=== PATIENT | female | born 1955 | race Two or more races ===

== ENCOUNTER 2019-07-23 09:30 | Day surgery (SDC) | payer OTHER | END 2019-07-23 17:00 | disposition home or self-care (01) | LOC: AMB-ENDOS 09:30 | DX: D12.0 Benign neoplasm of cecum (principal); K57.32 Diverticulitis of large intestine without perforation or abscess without bleeding; K57.30 Diverticulosis of large intestine without perforation or abscess without bleeding; K64.1 Second degree hemorrhoids ==

== ENCOUNTER 2020-01-15 17:33 | Emergency (ER) | payer OTHER ==
[~2020-01-15] VITALS: Ht 157.5 cm; Wt 85.3 kg
[2020-01-15] MEDS ORDERED: NAPR500T14 (18:00)
[2020-01-15] MEDS ORDERED: GABAPENTIN600 MG (18:00)
[2020-01-15] MEDS ORDERED: HYDROCHLOROTHIA25 MG (18:01)
== END 2020-01-15 23:13 | disposition home or self-care (01) ==
LOC: ER 17:33
DX: K57.32 Diverticulitis of large intestine without perforation or abscess without bleeding (principal)

== ENCOUNTER 2022-08-29 07:57 | Outpatient (CLI) | payer OTHER ==
[~2022-08-29 07:57] MED LIST: GABAPENTIN600 MG; HYDROCHLOROTHIA25 MG; NAPR500T14
== END 2022-08-29 08:02 | disposition home or self-care (01) ==
LOC: SONOGRAMA 07:57
PROVIDERS: ATTEND Pathology Anatomic Pathology & Clinical Pathology
DX: D34 Benign neoplasm of thyroid gland (principal); E04.9 Nontoxic goiter, unspecified; E07.9 Disorder of thyroid, unspecified; E04.2 Nontoxic multinodular goiter

== ENCOUNTER 2025-06-14 19:57 | Emergency (ER) | payer OTHER ==
[~2025-06-14] VITALS: Ht 157.5 cm; Wt 81.2 kg
[2025-06-14] MEDS ORDERED: ATORVASTATIN CA10 MG (20:29)
[2025-06-14] MEDS ORDERED: EZETIMIBE10 MG (20:29)
[2025-06-14] MEDS ORDERED: DRAMAMINE LESS25 MG (20:29)
[2025-06-14] MEDS ORDERED: 0.9 % SODIUM CHLORIDE 1,000 ML IV STA (21:15)
[2025-06-14] MEDS ORDERED: FAMOTIDINE/PF 20 MG/2 ML VIAL IV STA (21:16)
[2025-06-14] MEDS ORDERED: MORPHINE SULFATE 4 MG/ML CARTRIDGE IV STA (21:17)
[2025-06-14] MEDS ORDERED: FAMOTIDINE/PF 20 MG/2 ML VIAL ONE (21:44)
[2025-06-14 23:27] LABS: BASO % 0.4 % (0.1-1.2); EOS # 0.08 (0.04-0.54); EOS % 0.7 % (0.7-7.0); LYMPH # 1.46 (1.18-3.74); LYMPH % 13.0 % (19.3-53.1); MEAN PLATELET VOLUME 10.70 fl (9.4-12.4); MONO # 0.74 (0.24-0.82); MONO % 6.6 % (4.7-12.5); NEUT # 8.85 (1.56-6.13); NEUT % 79.1 % (34.0-71.1); RED CELL DISTRIBUTION WIDTH 12.8 % (11.6-14.4)
[2025-06-14 23:48] LABS: ALT/SGPT 36.0 U/L (12-78); AST/SGOT 20.0 U/L (15-37); BILIRUBIN TOTAL 0.64 mg/dL (0.3-1.2); BUN CREA RATIO 14.0 (7.0-25.0); CREATININE SERUM 0.65 mg/dL (0.55-1.02); GFR 90.91; GLOBULINA 3.7 G/DL (2.4-3.5); GLUCOSE FASTING 122.0 mg/dL (65-100); OSMOLALITY SERUM 278.0 MOSM/KG (275-295)
[2025-06-15 00:07] LABS: URINE APPEARANCE Clear; URINE BILIRRUBIN Negative (NEGATIVE); URINE BLOOD Negative; URINE COLOR Yellow; URINE GLUCOSE Negative (NEGATIVE); URINE KETONE Negative (NEGATIVE); URINE LEUKOCYTE Trace; URINE NITRATE Negative; URINE PROTEIN Negative (NEGATIVE); URINE UROBILINOGEN 0.2 E.U./dl
[2025-06-15 00:27] LABS: URINE EPITHELIAL CELLS 4.4 uL (0.0-38.8); URINE RBC 2.4 uL (0.0-20.8); URINE WBC 64.7 uL (0.0-23.2)
[2025-06-15] MEDS ORDERED: CIPRO500 MG PO (01:27)
[2025-06-15] MEDS ORDERED: KETO10TA2 PO (01:27)
[2025-06-15] MEDS ORDERED: METRONIDAZOLE500 MG PO (01:27)
[2025-06-15 01:28] LABS: URINE BACTERIA > 9821.5 uL (0.0-1933); URINE CAST 0.00 uL (0.0-1.40)
== END 2025-06-15 01:45 | disposition home or self-care (01) ==
LOC: ER 19:57
PROVIDERS: Physician Assistant Medical
DX: K57.32 Diverticulitis of large intestine without perforation or abscess without bleeding (principal); K57.30 Diverticulosis of large intestine without perforation or abscess without bleeding; N39.0 Urinary tract infection, site not specified
CPT/HCPCS: 36415; 74176; 96365; 96366; 99283; J2270; J3490; J7030

== ENCOUNTER 2025-06-15 15:26 | Inpatient (IN) | payer OTHER ==
[~2025-06-15] VITALS: Ht 157.5 cm; Wt 76.2 kg
[~2025-06-15 15:26] MED LIST changes: +ATORVASTATIN CA10 MG; +CIPRO500 MG PO; +DRAMAMINE LESS25 MG; +EZETIMIBE10 MG; +KETO10TA2 PO; +METRONIDAZOLE500 MG PO
[2025-06-15] MEDS ORDERED: CIPROFLOXACIN IN 5 % DEXTROSE 400 MG/200 ML PIGGYBAG IV SCH (17:10)
[2025-06-15] MEDS ORDERED: 0.9 % SODIUM CHLORIDE 1,000 ML IV SCH (17:15)
[2025-06-15] MEDS ORDERED: MORPHINE SULFATE 4 MG/ML CARTRIDGE IV PRN (17:15)
[2025-06-15] MEDS ORDERED: FAMOtidine 10 MG/ML (4ML VIAL) IV ONE (17:15)
[2025-06-15] MEDS ORDERED: METRONIDAZOLE/SODIUM CHLORIDE 500 MG/100 ML PIGGYBACK IV ONE (17:15)
[2025-06-15 18:07] LABS: BASO % 0.3 % (0.1-1.2); EOS # 0.13 (0.04-0.54); EOS % 1.4 % (0.7-7.0); LYMPH # 1.78 (1.18-3.74); LYMPH % 18.6 % (19.3-53.1); MEAN PLATELET VOLUME 10.50 fl (9.4-12.4); MONO # 0.81 (0.24-0.82); MONO % 8.5 % (4.7-12.5); NEUT # 6.79 (1.56-6.13); NEUT % 70.9 % (34.0-71.1); RED CELL DISTRIBUTION WIDTH 12.9 % (11.6-14.4)
[2025-06-15 18:53] LABS: URINE APPEARANCE Cloudy; URINE BILIRRUBIN Negative (NEGATIVE); URINE BLOOD Negative; URINE COLOR Yellow; URINE GLUCOSE Negative (NEGATIVE); URINE KETONE Trace (NEGATIVE); URINE LEUKOCYTE Moderate; URINE NITRATE Negative; URINE PROTEIN Trace (NEGATIVE); URINE UROBILINOGEN 0.2 E.U./dl
[2025-06-15 18:57] LABS: URINE BACTERIA 1238.2 uL (0.0-1933); URINE EPITHELIAL CELLS 44.4 uL (0.0-38.8); URINE RBC 6.5 uL (0.0-20.8); URINE WBC 334.1 uL (0.0-23.2)
[2025-06-15 19:24] LABS: ALT/SGPT 46.0 U/L (12-78); AST/SGOT 30.0 U/L (15-37); BILIRUBIN TOTAL 0.96 mg/dL (0.3-1.2); BUN CREA RATIO 13.0 (7.0-25.0); CREATININE SERUM 0.63 mg/dL (0.55-1.02); GFR 94.25; GLOBULINA 3.7 G/DL (2.4-3.5); GLUCOSE FASTING 105.0 mg/dL (65-100); OSMOLALITY SERUM 280.0 MOSM/KG (275-295)
[2025-06-15 19:35] LABS: INR 1.1
[2025-06-15 19:55] LABS: URINE CAST 0.00 uL (0.0-1.40); URINE MUCUS SCANT
[2025-06-15 19:57] LABS: TYPE CELLS SQUAMOUS
[2025-06-16] MEDS ORDERED: ONDANSETRON HCL 2 MG/ML VIAL IV ONE (00:15)
[2025-06-16] MEDS ORDERED: PROMETHAZINE HCL 50 MG/ML AMPUL IM ONE (08:00)
[2025-06-16] MEDS ORDERED: KETOROLAC TROMETHAMINE 30 MG VIAL IU PRN (16:00)
[2025-06-16] MEDS ORDERED: ONDANSETRON HCL 4 MG in 0.9 % SODIUM CHLORIDE 50 ML IV PRN (16:00)
[2025-06-16] MEDS ORDERED: MORPHINE SULFATE 2 MG/ML SYRINGE IV PRN (16:00)
[2025-06-16] MEDS ORDERED: ACETAMINOPHEN 325 MG TABLET PO PRN (16:00)
[2025-06-16] MEDS ORDERED: 0.9 % SODIUM CHLORIDE 1,000 ML IV SCH (16:00)
[2025-06-16 20:03] VITALS: BP 110/70
[2025-06-16] MEDS ORDERED: CIPROFLOXACIN IN 5 % DEXTROSE 200 ML IV SCH (21:00)
[2025-06-16 23:30] VITALS: BP 101/54; O2SAT 98
[2025-06-17 04:07] LABS: BASO % 0.5 % (0.1-1.2); EOS # 0.16 (0.04-0.54); EOS % 2.6 % (0.7-7.0); ERYTHROCYTE SEDIMENTATION RATE 47 mm/hr (0-30); LYMPH # 1.31 (1.18-3.74); LYMPH % 21.1 % (19.3-53.1); MEAN PLATELET VOLUME 10.20 fl (9.4-12.4); MONO # 0.48 (0.24-0.82); MONO % 7.7 % (4.7-12.5); NEUT # 4.20 (1.56-6.13); NEUT % 67.8 % (34.0-71.1); RED CELL DISTRIBUTION WIDTH 12.6 % (11.6-14.4)
[2025-06-17 04:30] VITALS: BP 134/76; O2SAT 100
[2025-06-17 05:08] LABS: BUN CREA RATIO 13.0 (7.0-25.0); CREATININE SERUM 0.6 mg/dL (0.55-1.02); GFR 99.71; GLUCOSE FASTING 95.0 mg/dL (65-100); OSMOLALITY SERUM 279.0 MOSM/KG (275-295)
[2025-06-17 08:06] VITALS: BP 117/71; O2SAT 95
[2025-06-17] MEDS ORDERED: PANTOPRAZOLE SODIUM 40 MG/VIAL VIAL IV SCH (09:00)
[2025-06-17] MEDS ORDERED: ACETAMINOPHEN 500 MG GEL..CAP PO PRN (13:30)
[2025-06-17 16:39] VITALS: BP 127/70; O2SAT 97
[2025-06-18 00:13] VITALS: BP 123/63; O2SAT 97
[2025-06-18 09:14] VITALS: BP 115/66; O2SAT 99
[2025-06-18 15:08] LABS: URINE APPEARANCE Clear; URINE BILIRRUBIN Negative (NEGATIVE); URINE BLOOD Negative; URINE COLOR Yellow; URINE GLUCOSE Negative (NEGATIVE); URINE KETONE 15 (NEGATIVE); URINE LEUKOCYTE Negative; URINE NITRATE Negative; URINE PROTEIN Negative (NEGATIVE); URINE UROBILINOGEN 0.2 E.U./dl
[2025-06-18] MEDS ORDERED: PROTONIX40 MG PO (15:10)
[2025-06-18] MEDS ORDERED: AUGMENTIN XR 11 EACH PO (15:12)
[2025-06-18 15:13] LABS: URINE BACTERIA 5.9 uL (0.0-1933); URINE EPITHELIAL CELLS 4.5 uL (0.0-38.8); URINE RBC 3.5 uL (0.0-20.8); URINE WBC 3.9 uL (0.0-23.2)
[2025-06-18 15:58] LABS: URINE CAST 0.00 uL (0.0-1.40)
== END 2025-06-18 19:19 | disposition home or self-care (01) | DRG 392 ==
LOC: ER 15:26 → SURG 06-16 16:50 → SEC-K 06-16 16:50 → SURG 06-16 23:22
PROVIDERS: General Practice; ADMIT Internal Medicine; ATTEND Internal Medicine
PROC: BW21YZZ Computerized Tomography (CT Scan) of Abdomen and Pelvis using Other Contrast (ICD-10-PCS; principal; 2025-06-15)
DX: K57.32 Diverticulitis of large intestine without perforation or abscess without bleeding (principal); R10.814 Left lower quadrant abdominal tenderness; E78.5 Hyperlipidemia, unspecified

== ENCOUNTER 2025-06-26 17:52 | Inpatient (IN) | payer OTHER ==
[~2025-06-26] VITALS: Ht 157.5 cm; Wt 78.9 kg
[~2025-06-26 17:52] MED LIST changes: +AUGMENTIN XR 11 EACH PO; +PROTONIX40 MG PO
--- NOTE | 2025-06-26 18:26 | NUR ---
PACIENTE ALERTA Y ORIENTADA X3, INDICA QUE FUE JAIRO DE CORRY EL 1 NOV POR DIVERTICULITIS BRUNA CONTINUA CON DOLOR ABDOMINAL Y NAUSEAS.
[2025-06-26] MEDS ORDERED: KETOROLAC TROMETHAMINE 30 MG VIAL IV ONE (19:00)
[2025-06-26] MEDS ORDERED: 0.9 % SODIUM CHLORIDE 1,000 ML IV SCH (19:00)
[2025-06-26] MEDS ORDERED: KETOROLAC TROMETHAMINE 30 MG VIAL ONE (19:00)
[2025-06-26] MEDS ORDERED: PIPERACILLIN/TAZOBACTAM SODIUM 3.375 GM VIAL IV ONE ×2 (19:00→19:01)
[2025-06-26 19:48] LABS: BASO % 0.4 % (0.1-1.2); EOS # 0.17 (0.04-0.54); EOS % 2.5 % (0.7-7.0); LYMPH # 1.51 (1.18-3.74); LYMPH % 22.4 % (19.3-53.1); MEAN PLATELET VOLUME 10.00 fl (9.4-12.4); MONO # 0.56 (0.24-0.82); MONO % 8.3 % (4.7-12.5); NEUT # 4.45 (1.56-6.13); NEUT % 66.3 % (34.0-71.1); RED CELL DISTRIBUTION WIDTH 12.6 % (11.6-14.4)
[2025-06-26 19:50] LABS: ERYTHROCYTE SEDIMENTATION RATE 27 mm/hr (0-30)
--- NOTE | 2025-06-26 19:51 | NUR ---
SE EDUCA PTE SOBRE TX Y ESTA REFIERE ENTENDER Y ACEPTAR. SE PROCEDE A COLECTAR MUESTRAS DE LABORATORIO, CANALIZAR Y ADMINISTRAR MEDICAMENTOS CED ORDEN MEDICA Y BAJO MEDIDAS ASEPTICAS. SE ENTREGA ENVASE PARA U/A.
[2025-06-26 20:17] LABS: ALT/SGPT 51.0 U/L (12-78); AST/SGOT 29.0 U/L (15-37); BILIRUBIN TOTAL 0.53 mg/dL (0.3-1.2); BUN CREA RATIO 11.0 (7.0-25.0); CREATININE SERUM 0.64 mg/dL (0.55-1.02); GFR 92.56; GLOBULINA 3.5 G/DL (2.4-3.5); GLUCOSE FASTING 107.0 mg/dL (65-100); OSMOLALITY SERUM 278.0 MOSM/KG (275-295)
[2025-06-26 20:22] LABS: URINE APPEARANCE Clear; URINE BILIRRUBIN Negative (NEGATIVE); URINE BLOOD Negative; URINE COLOR Yellow; URINE GLUCOSE Negative (NEGATIVE); URINE KETONE Negative (NEGATIVE); URINE LEUKOCYTE Negative; URINE NITRATE Negative; URINE PROTEIN Negative (NEGATIVE); URINE UROBILINOGEN 0.2 E.U./dl
[2025-06-26 20:27] LABS: URINE BACTERIA 5.9 uL (0.0-1933); URINE EPITHELIAL CELLS 11.1 uL (0.0-38.8); URINE WBC 4.2 uL (0.0-23.2)
[2025-06-26 20:32] LABS: URINE CAST 0.00 uL (0.0-1.40); URINE RBC 1.1 uL (0.0-20.8)
[2025-06-26 20:37] LABS: INR 1.04
[2025-06-26] MEDS ORDERED: KETOROLAC TROMETHAMINE 30 MG VIAL IU PRN (23:45)
[2025-06-26] MEDS ORDERED: ONDANSETRON HCL 4 MG in 0.9 % SODIUM CHLORIDE 50 ML IV PRN (23:45)
[2025-06-26] MEDS ORDERED: ACETAMINOPHEN 325 MG TABLET PO PRN (23:45)
[2025-06-26] MEDS ORDERED: MORPHINE SULFATE 2 MG/ML SYRINGE IV PRN (23:45)
[2025-06-27] MEDS ORDERED: PIPERACILLIN/TAZOBACTAM SODIUM 3.375 GM in 0.9 % SODIUM CHLORIDE 100 ML IV SCH (06:00)
[2025-06-27] MEDS ORDERED: FAMOTIDINE/PF 20 MG/2 ML VIAL IV SCH (09:00)
[2025-06-27] MEDS ORDERED: LACTOBACILLUS ACIDOPHILUS 1 CAP CAP PO SCH (09:00)
[2025-06-27 09:17] VITALS: BP 116/73; O2SAT 99
[2025-06-27] MEDS ORDERED: VANCOMYCIN HCL 125 MG CAPSULE PO SCH (14:00)
[2025-06-27 21:48] VITALS: BP 150/62; O2SAT 100
[2025-06-28 03:45] VITALS: BP 108/64; O2SAT 96
[2025-06-28 10:02] VITALS: BP 136/56; O2SAT 100
[2025-06-28 23:15] VITALS: BP 153/72; O2SAT 100
[2025-06-29 03:26] VITALS: BP 152/71; O2SAT 99
[2025-06-29 10:40] VITALS: BP 137/72; O2SAT 98
[2025-06-29 20:07] VITALS: BP 144/55; O2SAT 98
[2025-06-30 03:13] VITALS: BP 157/66; O2SAT 100
[2025-06-30 10:10] VITALS: BP 148/61; O2SAT 96
[2025-06-30] MEDS ORDERED: CLOTRIMAZOLE 10 MG TROCHE MM SCH (13:00)
== END 2025-06-30 13:27 | disposition home or self-care (01) | DRG 372 ==
LOC: ER 17:53 → MEDI 23:53 → MEDJ 06-28 16:19
PROVIDERS: Preventive Medicine Public Health & General Preventive Medicine; ADMIT Internal Medicine; ATTEND Internal Medicine
PROC: BW21YZZ Computerized Tomography (CT Scan) of Abdomen and Pelvis using Other Contrast (ICD-10-PCS; principal; 2025-06-26)
PROC: 8E0ZXY6 Isolation (ICD-10-PCS; 2025-06-28)
DX: A04.72 Enterocolitis due to Clostridium difficile, not specified as recurrent (principal); B37.0 Candidal stomatitis; N39.0 Urinary tract infection, site not specified; E78.5 Hyperlipidemia, unspecified